=== PATIENT | female | born 1945 ===

== ENCOUNTER 2021-06-19 08:00 | Outpatient (CLI) | payer OTHER | END 2021-06-19 08:05 | disposition home or self-care (01) | LOC: PPH VACUNA 08:00 | PROVIDERS: ATTEND Emergency Medicine Pediatric Emergency Medicine | DX: Z23 Encounter for immunization (principal) ==

== ENCOUNTER 2021-07-24 08:50 | Outpatient (CLI) | payer OTHER | END 2021-07-24 09:15 | disposition home or self-care (01) | LOC: PPH VACUNA 08:50 | PROVIDERS: ATTEND Emergency Medicine Pediatric Emergency Medicine | DX: Z23 Encounter for immunization (principal) ==